=== PATIENT | female | born 1990 | race Caucasian/White ===

== ENCOUNTER 2018-07-23 09:30 | Emergency (ER) | payer OTHER, SELFPAY ==
[2018-07-23 09:30] VITALS: BP 158/81; PULSE 115; RESP 22; TEMP 37.4; O2SAT 100; BMI 27.3
[2018-07-23 11:16] VITALS: BP 132/67; PULSE 67; RESP 18; O2SAT 100
--- NOTE | 2018-07-23 20:33 | ED.PSYCH ---
HPI - Psych General Chief Complaint: Psychiatric Symptoms Stated Complaint: VERY DEPRESSED, NEEDS TO SEE SOMEONE Time Seen by Provider: 07/23/18 10:18 Source: patient Mode of arrival: ambulatory Limitations: no limitations History of Present Illness HPI Narrative: 27-year-old nonsmoking female presents with gradually worsening depression over the past month or so. She denies any significant precipitating events but states that things have been gradually worsening and she now feels like she wants to ?and the pain?. She does not have active suicidal thoughts, plan and states very clearly she would not act on that comment. She denies any homicidal ideation. She is eating, sleeping and drinking plenty of fluids. She denies any history of hospitalizations for psychiatric reasons. She she has been taking citalopram as prescribed by her primary care provider. She has been searching for local psychiatrist but thus far unsuccessful. She denies any significant alcohol or street drugs MD complaint: feels depressed Onset (ago): week(s) Duration: constant History of same: Yes Relieving factors: none Exacerbating factors: none Associated psychiatric symptoms: depression and suicidal ideation Treatments prior to arrival: none Related Data Home Medications Medication Instructions Recorded Confirmed citalopram 10 mg PO DAILY 07/23/18 07/23/18 Allergies Allergy/AdvReac Type Severity Reaction Status Date / Time No Known Drug Allergies Allergy Verified 07/23/18 10:01 [facility] Social History Smoking Status: Current some day smoker Exam Narrative Exam Narrative: GENERAL: This is a well-nourished, well-developed patient, in mild distress. HEAD: Atraumatic. Normocephalic. No temporal or scalp tenderness. EYES: Pupils equal round and reactive. Extraocular motions intact. No scleral icterus. No injection or drainage. ENT: Nose without bleeding, purulent drainage or septal hematoma. Throat without erythema, tonsillar hypertrophy or exudate. Uvula midline. Airway patent. NECK: Trachea midline. No JVD or lymphadenopathy. Supple, nontender, no meningeal signs. CARDIOVASCULAR: Regular rate and rhythm without murmurs, gallops, or rubs. RESPIRATORY: Clear to auscultation. Breath sounds equal bilaterally. No wheezes, rales, or rhonchi. GASTROINTESTINAL: Abdomen soft, non-tender, nondistended. No hepato-splenomegaly, or palpable masses. No guarding. EXTREMITIES: No clubbing, cyanosis, or edema. No joint tenderness, effusion, or edema noted. BACK: Nontender without deformity or crepitance. No flank tenderness. NEURO: AOx3. SKIN: No rash or erythema. Initial Vital Signs Initial Vital Signs: Vital Signs Temperature 99.4 F 07/23/18 09:30 Pulse Rate 115 H 07/23/18 09:30 Respiratory Rate 22 07/23/18 09:30 Blood Pressure 158/81 H 07/23/18 09:30 Pulse Oximetry 100 07/23/18 09:30 Course Consultations Consultation #1: Primary care provider will see her on Thursday morning. Additionally, I have discussed this case with local psychiatry, Dr. Michel whom cannot accept new patients but is happy to work as a reporting consultant with a local provider. Dr. Hernandez, PCP, requests I increase Citalopram back to 20 mg Consultation #2: Care Crisis will contact patient at home soon after DC from ED MDM - Psych Lab Data Point of Care Testing Test Results Negative MDM Narrative Medical decision making narrative: Patient feels suicidal and somewhat hopeless but can contract for safety and has extensive and appropriate resources as an outpatient including care crisis over the weekend and primary care provider on Thursday. She has been given extensive return precautions and feels quite comfortable with this plan Discharge Plan Departure Patient Disposition: Home Clinical Impression: Depression Discharge Date/Time: 07/23/18 11:16 Interventions: ED Discharge Assessment Last Done: 07/23/18 11:16 Instructions: Depression Activity Restrictions/Additional Instructions: 1. You have an appointment with Dr. Hernandez on ThursdayJuly 26 at 0900 2. [facility] Crisis Team will be calling you today to discuss follow up options over the weekend 3. Please increase your Citalopram to 20mg daily 4. Please return immediately for any worsening or persistent symptoms Prescriptions: No Action citalopram 10 mg Tablet 10 mg PO DAILY RF: 0 Referrals: [facility] [Outside] Guevara Hernandez MD [Primary Care Provider] -
--- NOTE | 2018-07-23 20:37 | ED_ITS ---
HPI - Psych General Chief Complaint: Psychiatric Symptoms Stated Complaint: VERY DEPRESSED, NEEDS TO SEE SOMEONE Time Seen by Provider: 07/23/18 10:18 Source: patient Mode of arrival: ambulatory Limitations: no limitations History of Present Illness HPI Narrative: 27-year-old nonsmoking female presents with gradually worsening depression over the past month or so. She denies any significant precipitating events but states that things have been gradually worsening and she now feels like she wants to ?and the pain?. She does not have active suicidal thoughts, plan and states very clearly she would not act on that comment. She denies any homicidal ideation. She is eating, sleeping and drinking plenty of fluids. She denies any history of hospitalizations for psychiatric reasons. She she has been taking citalopram as prescribed by her primary care provider. She has been searching for local psychiatrist but thus far unsuccessful. She denies any significant alcohol or street drugs MD complaint: feels depressed Onset (ago): week(s) Duration: constant History of same: Yes Relieving factors: none Exacerbating factors: none Associated psychiatric symptoms: depression and suicidal ideation Treatments prior to arrival: none Related Data Home Medications Medication Instructions Recorded Confirmed citalopram 10 mg PO DAILY 07/23/18 07/23/18 Allergies Allergy/AdvReac Type Severity Reaction Status Date / Time No Known Drug Allergies Allergy Verified 07/23/18 10:01 [facility] Social History Smoking Status: Current some day smoker Exam Narrative Exam Narrative: GENERAL: This is a well-nourished, well-developed patient, in mild distress. HEAD: Atraumatic. Normocephalic. No temporal or scalp tenderness. EYES: Pupils equal round and reactive. Extraocular motions intact. No scleral icterus. No injection or drainage. ENT: Nose without bleeding, purulent drainage or septal hematoma. Throat without erythema, tonsillar hypertrophy or exudate. Uvula midline. Airway patent. NECK: Trachea midline. No JVD or lymphadenopathy. Supple, nontender, no meningeal signs. CARDIOVASCULAR: Regular rate and rhythm without murmurs, gallops, or rubs. RESPIRATORY: Clear to auscultation. Breath sounds equal bilaterally. No wheezes , rales, or rhonchi. GASTROINTESTINAL: Abdomen soft, non-tender, nondistended. No hepato-splenomegaly , or palpable masses. No guarding. EXTREMITIES: No clubbing, cyanosis, or edema. No joint tenderness, effusion, or edema noted. BACK: Nontender without deformity or crepitance. No flank tenderness. NEURO: AOx3. SKIN: No rash or erythema. Initial Vital Signs Initial Vital Signs: Vital Signs Temperature 99.4 F 07/23/18 09:30 Pulse Rate 115 H 07/23/18 09:30 Respiratory Rate 22 07/23/18 09:30 Blood Pressure 158/81 H 07/23/18 09:30 Pulse Oximetry 100 07/23/18 09:30 Course Consultations Consultation #1: Primary care provider will see her on Thursday morning. Additionally, I have discussed this case with local psychiatry, Dr. Michel whom cannot accept new patients but is happy to work as a content management consultant with a local provider. Dr. Hernandez, PCP, requests I increase Citalopram back to 20 mg Consultation #2: Care Crisis will contact patient at home soon after DC from ED MDM - Psych Lab Data Point of Care Testing Test Results Negative MDM Narrative Medical decision making narrative: Patient feels suicidal and somewhat hopeless but can contract for safety and has extensive and appropriate resources as an outpatient including care crisis over the weekend and primary care provider on Thursday. She has been given extensive return precautions and feels quite comfortable with this plan Discharge Plan Departure Patient Disposition: Home Clinical Impression: Depression Discharge Date/Time: 07/23/18 11:16 Interventions: ED Discharge Assessment Last Done: 07/23/18 11:16 Instructions: Depression Activity Restrictions/Additional Instructions: 1. You have an appointment with Dr. Hernandez on ThursdayJuly 26 at 0900 2. [facility] Crisis Team will be calling you today to discuss follow up options over the weekend 3. Please increase your Citalopram to 20mg daily 4. Please return immediately for any worsening or persistent symptoms Prescriptions: No Action citalopram 10 mg Tablet 10 mg PO DAILY RF: 0 Referrals: [facility] [Outside] Guevara Hernandez MD [Primary Care Provider] -
== END 2018-07-23 11:16 | disposition home or self-care (01) ==
PROVIDERS: Emergency Provider Emergency Medicine; PCP Family Medicine
DX: F32.9 Major depressive disorder, single episode, unspecified (principal)
CPT/HCPCS: 81025; 99283

== ENCOUNTER → 2019-10-05 18:21 | Outpatient (CLI) | payer OTHER, MEDICAID, SELFPAY ==
--- NOTE | 2019-10-05 18:22 | DI.RAD.S_ITS ---
PROCEDURE: XR SACRUM COCCYX MIN 2V INDICATIONS: tailbone pain TECHNIQUE: 3 views of the sacrum and coccyx acquired. COMPARISON: None. FINDINGS: Bones: No fractures or dislocations. No suspicious bony lesions. Soft tissues: Visualized bowel gas pattern is normal. No suspicious soft tissue densities. IMPRESSION: No acute radiographic findings. If pain persists, followup imaging in 5-7 days is recommended to exclude occult fracture. Dictated by: Brooke Mai M.D. on 10/05/2019 at 19:00 Approved by: Brooke Mai M.D. on 10/05/2019 at 19:02
== END ==
PROVIDERS: PCP Family Medicine; Referring Provider Physician Assistant; Visit Provider Physician Assistant
DX: S39.92XA Unspecified injury of lower back, initial encounter (principal); M53.3 Sacrococcygeal disorders, not elsewhere classified
CPT/HCPCS: 72220

== ENCOUNTER → 2020-05-17 16:14 | Outpatient (CLI) | payer OTHER, MEDICAID, SELFPAY ==
[2020-05-17 16:40] LABS: Add Manual Diff / Slide Review NO; Basophils Absolute Auto 100 /uL (0-100); Basophils Percent Auto 0.9 % (0-2); Eosinophils Absolute Auto 100 /uL (0-450); Eosinophils Percent Auto 1.4 % (2-4); Hematocrit 42.8 % (36-46); Hemoglobin 14.3 g/dL (12.0-16.0); Lymphocytes Absolute Auto 2100 /uL (1100-4500); Lymphocytes Percent Auto 33.8 % (25-40); Mean Corpuscular HGB Conc 33.4 % (30-36); Mean Corpuscular Hemoglobin 30.9 PG (26-34); Mean Corpuscular Volume 92.4 fL (80-100); Monocytes Absolute Auto 700 /uL (0-900); Monocytes Percent Auto 11.3 % (3-14); Neutrophils Absolute Auto 3200 /uL (1500-7000); Neutrophils Percent Auto 52.6 % (50-75); Platelet Count 307 X10^3/uL (150-400); Red Blood Cell Count 4.63 X10^6/uL (4.0-5.2); White Blood Cell Count 6.1 X10^3/uL (4.5-11.0)
[2020-05-17 16:56] LABS: Alanine Aminotransferase 29 IU/L (<35); Albumin 5.1 g/dL (3.5-5.0); Albumin Globulin Ratio 1.4 (1.0-2.8); Alkaline Phosphatase 61 U/L (38-126); Aspartate Aminotransferase 36 IU/L (14-36); BUN Creatinine Ratio 18.2 (6-22); Bilirubin Total 0.4 mg/dL (0.2-1.3); Blood Urea Nitrogen 14 mg/dL (7-17); C-Reactive Protein Quant < 0.5 mg/dL (<1.0); Calcium 9.9 mg/dL (8.4-10.2); Carbon Dioxide 28 mmol/L (22-32); Chloride 103 mmol/L (98-107); Estimated Glomerular Filt Rate > 60.0 mL/min (>60); Globulin 3.6 g/dL (1.7-4.1); Glucose 90 mg/dL (70-100); HEMOLYSIS < 15 (0-50); Potassium 4.2 mmol/L (3.4-5.1); Sodium 140 mmol/L (137-145); Total Protein 8.7 g/dL (6.3-8.2)
[2020-05-17 16:59] LABS: Rheumatoid Factor < 8.6 IU/mL (<12.0)
[2020-05-17 17:23] LABS: Thyroid Stimulating Hormone 1.75 uIU/mL (0.47-4.68)
[2020-05-17 17:25] LABS: Erythrocyte Sedimentation Rate 5 MM/HR (0-20)
[2020-05-19 12:56] LABS: ANA Screen, IFA Positive (.)
== END ==
PROVIDERS: PCP Family Medicine; Referring Provider Family Medicine; Visit Provider Family Medicine
DX: M25.50 Pain in unspecified joint (principal)
CPT/HCPCS: 36415; 80053; 84443; 85025; 85651; 86038; 86140; 86430

== ENCOUNTER → 2020-05-18 10:38 | Outpatient (CLI) | payer OTHER, MEDICAID, SELFPAY ==
--- NOTE | 2020-05-18 10:41 | DI.RAD.S_ITS ---
PROCEDURE: XR LUMBAR SPINE 2-3V INDICATIONS: Arthralgia TECHNIQUE: 3 views of the lumbar spine were acquired. COMPARISON: [facility], , L-SPINE 2-3 VIEWS, 05/05/2016, 12:51. FINDINGS: Bones: 5 [id number] vertebrae are present. There is normal bony alignment. No vertebral body compression fractures. No suspicious bony lesions. Minimal disc height reduction at L5-S1 Soft tissues: Overlying bowel gas pattern is normal. No suspicious soft tissue calcifications. IMPRESSION: Minimal disc height reduction at L5-S1, no trauma found. No sign of pars interarticularis defects or subluxation. Dictated by: Garry Brown M.D. on 05/18/2020 at 11:25 Approved by: Garry Brown M.D. on 05/18/2020 at 11:26
--- NOTE | 2020-05-18 10:41 | DI.RAD.S_ITS ---
PROCEDURE: XR THORACIC SPINE 3V INDICATIONS: Arthralgia TECHNIQUE: 3 views of the thoracic spine were acquired. COMPARISON: None. FINDINGS: Bones: No fractures or dislocations. No suspicious bony lesions. 12 pairs of ribs are noted, and appear intact where visualized. Soft tissues: No paravertebral stripe thickening. IMPRESSION: No radiographic abnormalities. Dictated by: Brooke Mai M.D. on 05/18/2020 at 13:01 Approved by: Brooke Mai M.D. on 05/18/2020 at 13:02
--- NOTE | 2020-05-18 10:41 | DI.RAD.S_ITS ---
PROCEDURE: XR CERVICAL SPINE 2V OR 3V INDICATIONS: Arthralgia TECHNIQUE: 3 view(s) of the cervical spine were acquired. COMPARISON: None. FINDINGS: Bones: No fractures or dislocations to the T1 level. The lateral masses of C1 appear intact on the odontoid view. No suspicious bony lesions. Soft tissues: No prevertebral soft tissue swelling. IMPRESSION: Normal for age, source of current neck pain symptoms is not seen. Dictated by: Garry Brown M.D. on 05/18/2020 at 11:24 Approved by: Garry Brown M.D. on 05/18/2020 at 11:25
== END ==
PROVIDERS: PCP Family Medicine; Referring Provider Family Medicine; Visit Provider Family Medicine
DX: M54.2 Cervicalgia (principal); M54.5 Low back pain; M54.6 Pain in thoracic spine
CPT/HCPCS: 72040; 72072; 72100

== ENCOUNTER → 2023-11-26 17:38 | Outpatient (CLI) | payer OTHER, SELFPAY ==
[2023-11-26 18:19] LABS: Appearance Urine UA CLEAR; Bilirubin Urine UA NEGATIVE (NEGATIVE); Color Urine UA YELLOW; Glucose Urine UA NEGATIVE (Negative); Ketones Urine UA NEGATIVE (NEGATIVE); Leukocyte Esterase Urine UA NEGATIVE (NEGATIVE); Nitrite Urine UA NEGATIVE (Negative); Occult Blood Urine UA NEGATIVE (Negative); Protein Urine UA NEGATIVE (Negative); Specific Gravity Urine UA <=1.005 (1.000-1.035); Urobilinogen Urine UA 0.2 E.U./dL (0.2)
[2023-11-26 18:20] LABS: pH Urine UA 5.5 (4.5-8.0)
[2023-11-26 18:27] LABS: Bacteria Urine Occasional (0-1); Culture Indicated Urine Cult Not Indicated; RBC Urine None Seen (0-5/HPF); Squamous Epithelial Cell Urine None Seen (0-5/HPF); Urine Volume 10mL (spun); WBC Urine 0-1/HPF (0-5/HPF)
== END ==
PROVIDERS: PCP Family Medicine; Visit Provider Nurse Practitioner Family
DX: R10.30 Lower abdominal pain, unspecified (principal); M54.50 Low back pain, unspecified
CPT/HCPCS: 81001; 87086

== ENCOUNTER → 2024-04-09 08:42 | Outpatient (CLI) | payer BC, SELFPAY ==
[2024-04-09 09:13] LABS: Add Manual Diff / Slide Review NO; Basophils Absolute Auto 100 /uL (0-100); Basophils Percent Auto 1.1 % (0-2); Eosinophils Absolute Auto 100 /uL (0-450); Eosinophils Percent Auto 1.9 % (2-4); Hematocrit 39.5 % (36-46); Hemoglobin 13.2 g/dL (12.0-16.0); Lymphocytes Absolute Auto 2400 /uL (1100-4500); Lymphocytes Percent Auto 40.1 % (25-40); Mean Corpuscular HGB Conc 33.5 % (30-36); Mean Corpuscular Hemoglobin 30.9 PG (26-34); Mean Corpuscular Volume 92.3 fL (80-100); Monocytes Absolute Auto 600 /uL (0-900); Monocytes Percent Auto 10.8 % (3-14); Neutrophils Absolute Auto 2700 /uL (1500-7000); Neutrophils Percent Auto 46.1 % (50-75); Platelet Count 270 X10^3/uL (150-400); Red Blood Cell Count 4.28 X10^6/uL (4.0-5.2); White Blood Cell Count 5.9 X10^3/uL (4.5-11.0)
[2024-04-09 09:30] LABS: Alanine Aminotransferase 24 IU/L (<35); Albumin 4.3 g/dL (3.5-5.0); Albumin Globulin Ratio 1.6 (1.0-2.8); Alkaline Phosphatase 48 U/L (38-126); Aspartate Aminotransferase 24 IU/L (14-36); BUN Creatinine Ratio 19.7 (6-22); Bilirubin Total 0.6 mg/dL (0.2-1.3); Blood Urea Nitrogen 15 mg/dL (7-17); Calcium 9.2 mg/dL (8.4-10.2); Carbon Dioxide 23 mmol/L (22-32); Chloride 105 mmol/L (98-107); Cholesterol 169 mg/dL (140-199); Estimated Glomerular Filt Rate > 60 mL/min (>60); Globulin 2.7 g/dL (1.7-4.1); Glucose 94 mg/dL (70-100); HDL Cholesterol 72 mg/dL (40-60); HEMOLYSIS < 15 (0-50); LDL Cholesterol Calculated 84 mg/dL (<100); Potassium 4.4 mmol/L (3.4-5.1); Sodium 135 mmol/L (137-145); Triglycerides 66 mg/dL (35-150)
[2024-04-09 10:02] LABS: TSH w/ Reflex to FT4 1.57 uIU/mL (0.47-4.68)
[2024-04-15 12:12] LABS: Percent Free Testosterone 1.78 % (0.50-2.80); Testosterone Free 0.71 ng/dL (0.10-0.85); Testosterone Total 39.7 ng/dL (10.0-55.0)
== END ==
PROVIDERS: PCP Family Medicine; Referring Provider Family Medicine; Visit Provider Family Medicine
DX: F90.9 Attention-deficit hyperactivity disorder, unspecified type (principal); F41.9 Anxiety disorder, unspecified; Z00.00 Encounter for general adult medical examination without abnormal findings; F32.9 Major depressive disorder, single episode, unspecified; L68.0 Hirsutism; M54.50 Low back pain, unspecified
CPT/HCPCS: 36415; 80053; 80061; 84402; 84403; 84443; 85025

== ENCOUNTER → 2024-07-01 08:39 | Outpatient (CLI) | payer OTHER, MEDICAID, SELFPAY ==
[2024-07-04 08:09] LABS: Hepatitis B Surf Ab Qualitativ Reactive (.)
== END ==
PROVIDERS: PCP Family Medicine; Referring Provider Family Medicine; Visit Provider Family Medicine
DX: Z78.9 Other specified health status (principal)
CPT/HCPCS: 36415; 86706

== ENCOUNTER → 2025-02-09 11:57 | Outpatient (CLI) | payer OTHER, SELFPAY ==
[2025-02-11 10:08] LABS: Rubeola Measles IgG 29.6 AU/mL (Immune >16.4)
[2025-02-13 20:36] LABS: QuantiFERON Mitogen Value >10.00 IU/mL (.); QuantiFERON Nil Value 0.04 IU/mL (.); QuantiFERON TB Gold Plus Negative (Negative); QuantiFERON TB1 Ag Value 0.05 IU/mL (.); QuantiFERON TB2 Ag Value 0.06 IU/mL (.)
== END ==
PROVIDERS: PCP Family Medicine; Referring Provider Family Medicine; Visit Provider Family Medicine
DX: Z11.1 Encounter for screening for respiratory tuberculosis (principal); Z01.84 Encounter for antibody response examination; F90.0 Attention-deficit hyperactivity disorder, predominantly inattentive type; F41.9 Anxiety disorder, unspecified; F32.9 Major depressive disorder, single episode, unspecified; R76.0 Raised antibody titer
CPT/HCPCS: 86480; 86735; 86762; 86765; 86787

== ENCOUNTER → 2025-04-26 15:10 | Outpatient (CLI) | payer OTHER, SELFPAY ==
[2025-04-26 15:56] LABS: Ur Creatinine Normal (Normal); Ur Specific Gravity Normal (Normal); Urine MDMA Negative (Negative); Urine Methamphetamines Negative (Negative); Urine THC Negative (Negative); Urine Tricyclic Antidepressant Negative (Negative); Urine pH Normal (Normal)
== END ==
PROVIDERS: PCP Family Medicine; Referring Provider Family Medicine; Visit Provider Family Medicine
DX: Z13.9 Encounter for screening, unspecified (principal); Z02.0 Encounter for examination for admission to educational institution
CPT/HCPCS: 80305